=== PATIENT | female | born 1965 | race Caucasian/White ===

== ENCOUNTER 2017-04-23 23:27 | Emergency (ER) | payer MEDICAID ==
[2017-04-23 23:29] VITALS: BMI 26.5
[2017-04-23 23:32] VITALS: RESP 18
[2017-04-24 00:22] VITALS: BP 116/73; TEMP 99.1; O2SAT 98
[2017-04-24] MEDS ORDERED: TDAP Vaccine 0.5 mL Syr IM ONE (00:26)
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
[2017-04-24 02:30] VITALS: PULSE 117
--- NOTE | 2017-04-24 08:54 | CARD ---
APPROVED REPORT EKG Measurement Heart [id number] <Conclusion> Sinus tachycardia Otherwise normal ECG
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
== END 2017-04-24 02:42 | disposition home or self-care (01) ==
LOC: H.ER 23:27
DX: S01.01XA Laceration without foreign body of scalp, initial encounter (principal); S20.219A Contusion of unspecified front wall of thorax, initial encounter; S09.90XA Unspecified injury of head, initial encounter; E11.9 Type 2 diabetes mellitus without complications; Z86.59 Personal history of other mental and behavioral disorders; I10 Essential (primary) hypertension; Y04.0XXA Assault by unarmed brawl or fight, initial encounter